=== PATIENT | female | born 1985 | race Caucasian/White ===

== ENCOUNTER 2017-02-15 15:58 | Emergency (ER) | payer OTHER ==
--- NOTE | 2017-02-15 16:23 | EDPHY ---
H & P HPI/ROS: HPI CHIEF COMPLAINT: Abdominal pain HISTORY OF PRESENT ILLNESS: This patient very pleasant 31-year-old female, she is otherwise healthy no significant medical history does not take any daily medications she presents emergency room with abdominal pain since Saturday with associated nausea vomiting and diarrhea. No blood. No fever. She describes her abdominal pain is lower abdomen crampy in nature. She denies being . The pain has been persistent for the past 2 days worse today. She last vomited at 10:00 a.m.. Last had a diarrheal movement earlier this morning. Denies chest pain shortness of breath. Denies blood in her vomit or stool. She does feel nauseous. Is having ongoing 6/10 lower abdominal cramping. Denies urinary symptoms or vaginal bleeding. Denies vaginal discharge. Past Medical History: No medical history Past Surgical History: No surgical history Social History: Lives locally, denies drugs alcohol tobacco. Family History: Noncontributory ROS REVIEW OF SYSTEMS: A comprehensive 10 point review of systems is otherwise negative aside from elements mentioned in the history of present illness. Exam Constitutional appears well nontoxic, triage nursing summary reviewed, vital signs reviewed, awake/alert. Eyes normal conjunctivae and sclera, EOMI, PERRLA. HENT normal inspection, atraumatic, moist mucus membranes, no epistaxis, neck supple/ no meningismus, no raccoon eyes. Respiratory clear to auscultation bilaterally, normal breath sounds, no respiratory distress, no wheezing. Cardiovascular rate normal, regular rhythm, no murmur, no edema, distal pulses normal. Gastrointestinal soft, mild tender palpation lower abdomen, no peritoneal signs, no rebound, no guarding, normal bowel sounds, no distension, no pulsatile mass. Genitourinary no CVA tenderness. Musculoskeletal no midline vertebral tenderness, full range of motion, no calf swelling, no tenderness of extremities, no meningismus, good pulses, neurovascularly intact. Skin pink, warm, & dry, no rash, skin atraumatic. Neurologic awake, alert and oriented x 3, AAOx3, moves all 4 extremities equally, motor intact, sensory intact, CN II-XII intact, normal cerebellar, normal vision, normal speech. Psychiatric normal mood/affect. Heme/Lymph/Immune no lymphadenopathy. Differential diagnosis includes but is not limited to and in no particular order : Bowel obstruction, appendicitis, gallbladder disease, diverticulitis, colitis , enteritis, perforated viscus, gastritis, GERD, esophagitis, urinary tract infection, pyelonephritis, kidney stones Medical Decision Making: Plan for this patient IV established with IV fluid bolus, 0.5 mg IV Dilaudid for pain control, 4 mg IV Zofran for nausea, check basic blood work, CT scan abdomen pelvis with IV contrast rule out colitis, diverticulitis. Re-evaluation: 1816: Patient resting comfortably. She tells me she feels much better after IV fluids Zofran and Dilaudid. Her abdomen remained soft nontender. She has not any vomiting or diarrhea here. Unable to produce a stool specimen at this time. Her CT scan called to me by Dr. Michel CT abdomen pelvis with IV shows no acute inflammatory process. Trace free fluid in the pelvis. No evidence of colitis or diverticulitis. Some swollen lymph nodes present. Unable to visualize the appendix. I discussed the CT scan findings with the patient. She understands they were unable to see her appendix this evening. However she appears well nontoxic she is not having vomiting or worsening diarrhea worsening abdominal pain. She feels comfortable going home. I do recommend she return emergency room she develops worsening abdominal pain fever vomiting given that we cannot see her appendix. Strict return precautions given. Close follow-up. She understands this. Prescription for Zofran provided. Additionally will stent home with a stool specimen collection and if she develops diarrhea stool she can drop off the lab. Source: Patient - Medical/Surgical History Hx Asthma: No Hx Chronic Respiratory Disease: No Hx Diabetes: No Hx Cardiac Disease: No Hx Renal Disease: No Hx Cirrhosis: No Hx Alcoholism: No Hx HIV/AIDS: No Hx Splenectomy or Spleen Trauma: No Other PMH: denies - Social History Smoking Status: Never smoked Constitutional: Initial Vital Signs Temperature (C) 37 C 02/15/17 16:22 Heart Rate 71 02/15/17 16:22 Respiratory Rate 16 02/15/17 16:22 Blood Pressure 114/81 H 02/15/17 16:22 O2 Sat (%) 98 02/15/17 16:22 O2 Delivery Mode Room Air Allergies/Adverse Reactions: amoxicillin Allergy (Verified 02/15/17 16:28) Home Medications: Medication Instructions Recorded Ondansetron HCl [Zofran] 4 mg PO Q4-6PRN PRN #10 tablet 02/15/17 Medical Decision Making - Diagnostics Imaging Results: Imaging Impressions Abdomen CT 02/15/17 16:28 Impression: Trace free fluid in the pelvis, nonspecific. Otherwise, no acute abnormalities in the abdomen or pelvis. Dr. Michel discussed these findings by telephone with Edgardo Sandoval MD on at 17:56. - Data Points Laboratory Results: Laboratory Results 02/15/17 16:45 02/15/17 16:45 02/15/17 02/15/17 02/15/17 18:35 16:45 16:45 WBC RBC Hgb Hct MCV MCH MCHC RDW Plt Count MPV Neut % (Auto) Lymph % (Auto) [place] % (Auto) Eos % (Auto) Baso % (Auto) Nucleat RBC Rel Count Absolute Neuts (auto) Absolute Lymphs (auto) Absolute Monos (auto) Absolute Eos (auto) Absolute Basos (auto) Absolute Nucleated RBC Immature Gran % Immature Gran # PT INR APTT VBG Lactic Acid Sodium 141 mEq/L mEq/L (134-144) Potassium 3.4 mEq/L L mEq/L (3.5-5.2) Chloride 100 mEq/L mEq/L (97-110) Carbon Dioxide 24 mEq/l mEq/l (22-31) Anion Gap 17 mEq/L H mEq/L (8-16) BUN 7 mg/dL mg/dL (7-23) Creatinine 0.6 mg/dL mg/dL (0.6-1.0) Estimated GFR > 60 Glucose 107 mg/dL H mg/dL (70-100) Calcium 9.2 mg/dL mg/dL (8.5-10.4) Total Bilirubin 0.3 mg/dL mg/dL (0.1-1.4) Conjugated Bilirubin 0.1 mg/dL mg/dL (0.0-0.5) Unconjugated Bilirubin 0.2 mg/dL mg/dL (0.0-1.1) AST 17 IU/L IU/L (14-46) ALT 30 IU/L IU/L (9-52) Alkaline Phosphatase 61 IU/L IU/L (38-126) Total Protein 7.4 g/dL g/dL (6.3-8.2) Albumin 4.2 g/dL g/dL (3.5-5.0) Lipase 49 IU/L IU/L (23-300) Beta HCG, Qual NEGATIVE Urine Color YELLOW Urine Appearance CLEAR Urine pH 5.0 (5.0-7.5) Ur Specific [place] <= 1.005 (1.002-1.030) Urine Protein NEGATIVE (NEGATIVE) Urine Ketones NEGATIVE (NEGATIVE) Urine Blood TRACE H (NEGATIVE) Urine Nitrate NEGATIVE (NEGATIVE) Urine Bilirubin NEGATIVE (NEGATIVE) Urine Urobilinogen 0.2 EU EU (0.2-1.0) Ur Leukocyte Esterase NEGATIVE (NEGATIVE) Urine RBC OCCASIONAL /hpf /hpf (0-3) Urine WBC NONE SEEN /hpf /hpf (0-3) Ur Epithelial Cells NONE SEEN /lpf /lpf (NONE-1+) Urine Glucose NEGATIVE (NEGATIVE) 02/15/17 02/15/17 02/15/17 16:45 16:45 16:45 WBC 6.87 10^3/uL 10^3/uL (3.80-9.50) RBC 4.66 10^6/uL 10^6/uL (4.18-5.33) Hgb 14.3 g/dL g/dL (12.6-16.3) Hct 41.4 % % (38.0-47.0) MCV 88.8 fL fL (81.5-99.8) MCH 30.7 pg pg (27.9-34.1) MCHC 34.5 g/dL g/dL (32.4-36.7) RDW 11.6 % % (11.5-15.2) Plt Count 221 10^3/uL 10^3/uL (150-400) MPV 9.4 fL fL (8.7-11.7) Neut % (Auto) 72.5 % % (39.3-74.2) Lymph % (Auto) 14.6 % L % (15.0-45.0) [place] % (Auto) 9.6 % % (4.5-13.0) Eos % (Auto) 2.9 % % (0.6-7.6) Baso % (Auto) 0.3 % % (0.3-1.7) Nucleat RBC Rel Count 0.0 % % (0.0-0.2) Absolute Neuts (auto) 4.98 10^3/uL 10^3/uL (1.70-6.50) Absolute Lymphs (auto) 1.00 10^3/uL 10^3/uL (1.00-3.00) Absolute Monos (auto) 0.66 10^3/uL 10^3/uL (0.30-0.80) Absolute Eos (auto) 0.20 10^3/uL 10^3/uL (0.03-0.40) Absolute Basos (auto) 0.02 10^3/uL 10^3/uL (0.02-0.10) Absolute Nucleated RBC 0.00 10^3/uL 10^3/uL (0-0.01) Immature Gran % 0.1 % % (0.0-1.1) Immature Gran # 0.01 10^3/uL 10^3/uL (0.00-0.10) PT 13.6 SEC SEC (12.0-15.0) INR 1.05 (0.83-1.16) APTT 27.5 SEC SEC (23.0-38.0) VBG Lactic Acid 0.9 mmol/L mmol/L (0.7-2.1) Sodium Potassium Chloride Carbon Dioxide Anion Gap BUN Creatinine Estimated GFR Glucose Calcium Total Bilirubin Conjugated Bilirubin Unconjugated Bilirubin AST ALT Alkaline Phosphatase Total Protein Albumin Lipase Beta HCG, Qual Urine Color Urine Appearance Urine pH Ur Specific [place] Urine Protein Urine Ketones Urine Blood Urine Nitrate Urine Bilirubin Urine Urobilinogen Ur Leukocyte Esterase Urine RBC Urine WBC Ur Epithelial Cells Urine Glucose Medications Given: Discontinued Medications Hydromorphone HCl (Dilaudid) 0.5 mg IVP EDNOW ONE Stop: 02/15/17 16:29 Last Admin: 02/15/17 17:02 Dose: 0.5 mg Sodium Chloride (Ns) 1,000 mls @ 0 mls/hr IV EDNOW ONE; Wide Open PRN Reason: Protocol Stop: 02/15/17 16:29 Last Admin: 02/15/17 16:57 Dose: 1,000 mls Sodium Chloride (Ns) 1,000 mls @ 0 mls/hr IV ONCE ONE PRN Reason: Wide Open Stop: 02/15/17 18:27 Last Admin: 02/15/17 18:25 Dose: 1,000 mls Ondansetron HCl (Zofran) 4 mg IVP EDNOW ONE Stop: 02/15/17 16:29 Last Admin: 02/15/17 16:57 Dose: 4 mg Departure - Departure Disposition: Home, Routine, Self-Care Clinical Impression: Abdominal pain Qualifiers: Abdominal location: lower abdomen, unspecified Qualified Code(s): R10.30 - Lower abdominal pain, unspecified Vomiting Qualifiers: Vomiting type: unspecified Vomiting Intractability: non-intractable Nausea presence: with nausea Qualified Code(s): R11.2 - Nausea with vomiting, unspecified Diarrhea Qualifiers: Diarrhea type: unspecified type Qualified Code(s): R19.7 - Diarrhea, unspecified Condition: Good Instructions: Dehydration (ED), Acute Nausea and Vomiting (ED), Acute Diarrhea (ED), Acute Abdominal Pain (ED) Additional Instructions: 1. Return emergency room if he develops worsening abdominal pain fever vomiting. 2. Stool specimen drop off at the hospital if you have diarrhea. 3. Return if worse. 4. [place] diet over the next 24-48 hours. 5. We were unable to visualize her appendix on the CT scan. If you develop worsening abdominal pain fever vomiting return to the emergency room. Referrals: ANGELICA HERNANDEZ [Primary Care Provider] - As per Instructions Prescriptions: Ondansetron HCl [Zofran] 4 mg PO Q4-6PRN PRN #10 tablet PRN Reason: Nausea/Vomiting, Use 1st
[2017-02-15 16:28] VITALS: RESP 16
[2017-02-15] MEDS ORDERED: NS 1,000 ML IV ONE ×2 (16:28→18:26)
[2017-02-15] MEDS ORDERED: HYDROmorphONE/DILAUDID 1 MG/ML INJ IVP ONE (16:28)
[2017-02-15] MEDS ORDERED: ONDANSETRON 4 MG/2 ML VIAL IVP ONE (16:28)
[2017-02-15] MEDS ORDERED: IOPAMIDOL (ISOVUE-300) 100 ML BTL ONE (16:37)
[2017-02-15 16:51] LABS: % IMMATURE GRANULYOCYTES 0.1 % (0.0-1.1); ABSOLUTE IMMATURE GRANULOCYTES 0.01 10^3/uL (0.00-0.10); ADD DIFF? NO; ADD MORPH? NO; ADD SCAN? NO; ATYPICAL LYMPHOCYTE FLAG 10 (0-99); FRAGMENT RBC FLAG 0 (0-99); HEMATOCRIT 41.4 % (38.0-47.0); HEMOGLOBIN 14.3 g/dL (12.6-16.3); LEFT SHIFT FLG 0 (0-99); LIPEMIA HEMOLYSIS FLAG 90 (0-99); MEAN CELL HEMOGLOBIN 30.7 pg (27.9-34.1); MEAN CELL HEMOGLOBIN CONCENTR. 34.5 g/dL (32.4-36.7); MEAN CELL VOLUME 88.8 fL (81.5-99.8); MEAN PLATELET VOLUME 9.4 fL (8.7-11.7); PLATELET CLUMPS FLAG 0 (0-99); PLATELET COUNT 221 10^3/uL (150-400); RED BLOOD CELL COUNT 4.66 10^6/uL (4.18-5.33); RED CELL DISTRIBUTION WIDTH 11.6 % (11.5-15.2)
[2017-02-15 17:04] LABS: INR 1.05 (0.83-1.16); PROTIME(PATIENT) 13.6 SEC (12.0-15.0)
[2017-02-15 17:05] LABS: APTT 27.5 SEC (23.0-38.0)
[2017-02-15 17:10] LABS: ALANINE AMINOTRANSFERASE 30 IU/L (9-52); ALBUMIN 4.2 g/dL (3.5-5.0); ALKALINE PHOSPHATASE 61 IU/L (38-126); ANION GAP 17 mEq/L (8-16); ASPARTATE AMINOTRANSFERASE 17 IU/L (14-46); BILIRUBIN,TOTAL 0.3 mg/dL (0.1-1.4); BILIRUBIN-CONJUGATED 0.1 mg/dL (0.0-0.5); BILIRUBIN-UNCONJUGATED 0.2 mg/dL (0.0-1.1); CALCIUM 9.2 mg/dL (8.5-10.4); CARBON DIOXIDE 24 mEq/l (22-31); CHLORIDE 100 mEq/L (97-110); CREATININE 0.6 mg/dL (0.6-1.0); GLOMERULAR FILTRATION RATE > 60; GLUCOSE 107 mg/dL (70-100); POTASSIUM 3.4 mEq/L (3.5-5.2); SODIUM 141 mEq/L (134-144); TOTAL PROTEIN 7.4 g/dL (6.3-8.2)
[2017-02-15 18:40] LABS: COLOR YELLOW; LEUKOCYTE ESTERASE,URINE NEGATIVE (NEGATIVE); NITRITE,URINE NEGATIVE (NEGATIVE)
[2017-02-15 18:52] LABS: RBC,URINE OCCASIONAL /hpf (0-3); WBC,URINE NONE SEEN /hpf (0-3)
[2017-02-15 19:33] VITALS: BP 111/69; PULSE 75; TEMP 98.9; O2SAT 98
== END 2017-02-15 19:38 | disposition home or self-care (01) ==
LOC: CED 15:58
DX: R10.30 Lower abdominal pain, unspecified (principal); R11.2 Nausea with vomiting, unspecified; E86.9 Volume depletion, unspecified
CPT/HCPCS: 74177-PO; 80048-PO; 80076-PO; 81003-PO; 81015-PO; 83605-PO; 83690-PO; 84703-PO; 85025-PO; 85610-PO; 85730-PO; 96374; J1170; J2405; Q9967

== ENCOUNTER 2017-12-29 10:19 | Observation (INO) | payer OTHER ==
[2017-12-29 11:31] LABS: PLATELET COUNT 159 10^3/uL (150-400)
[2017-12-29] MEDS ORDERED: oxyCODONE IR 5 MG TAB PO ONE (12:09)
--- NOTE | 2017-12-29 12:34 | PDGENHP ---
History and Physical - Chief Complaint headache - History of Present Illness 32 at 36w6d here with a SIGALA. Pt with SIGALA, frontal and temporal, throbbing, which started yesterday evening. SIGALA has persisted overnight. Min relief from acetominophen, hydration and caffeine. Possible floaters in vision yesterday, none today. No epigastric or RUQ pain. 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 Has been really busy at work the past few weeks and now is done working. HAs are not a normal occurrence for her. Has taken Vicodin for a hand injury and morphine for a GI hospitalization and tolerated both well in the past. course c/b hx of PTD ta 36 wk 2/2 PPROM - was on [place] injections, last one 4 d ago, low lying placenta which resolved at 32wk US, hx of pp anxiety and anxiety this - started on Zoloft at 30 wk, LGA - 88%ile at 30 wk - planning IOL at 39 wk. labs - no genetic screening done. All other PN labs wnl O pos Rub Imm GBS neg History Information - Allergies/Home Medication List Allergies/Adverse Reactions: amoxicillin Allergy (Verified 02/15/17 16:28) I have personally reviewed and updated: family history, medical history, social history, surgical history (anxiety ) - Surgical History Additional surgical history: D&C for TAB, wisdom teeth - Family History Positive for: hypertension (M & F) Additional family history: high chol -M&F. PGM - brain cancer. PGF - leukemia. MGF - prostate ca. MGM - CVA - Social History Smoking Status: Never smoked Alcohol Use: None Drug Use: None Additional social history: , here with her today Review of Systems Review of Systems: ROS: 10pt was reviewed & negative except for what was stated in HPI & below Physical Exam Physical Exam: 36.8 75 100% on RA 16 100/55 range:88-100 / 50-55 FHR 130 reactive, Cat 1 toco - no ctxns Constitutional: no apparent distress, appears nourished Eyes: PERRL, EOMI Ears, Nose, Mouth, Throat: moist mucous membranes, hearing normal, ears appear normal Cardiovascular: regular rate and rhythym Respiratory: no respiratory distress, no rales or rhonchi Gastrointestinal: normoactive bowel sounds, soft, non-tender abdomen (uterine fundus c/w 37 weeks, nontender) Skin: warm, normal color Musculoskeletal: full muscle strength, no muscle tenderness Neurologic: AAOx3 Psychiatric: interacting appropriately Lab Data & Imaging Review 12/29/17 11:10 12/29/17 10:45 WBC 10.00 10^3/uL (3.80-9.50) H 12/29/17 11:10 RBC 3.46 10^6/uL (4.18-5.33) L 12/29/17 11:10 Hgb 10.2 g/dL (12.6-16.3) L 12/29/17 11:10 Hct 30.9 % (38.0-47.0) L 12/29/17 11:10 MCV 89.3 fL (81.5-99.8) 12/29/17 11:10 MCH 29.5 pg (27.9-34.1) 12/29/17 11:10 MCHC 33.0 g/dL (32.4-36.7) 12/29/17 11:10 RDW 12.8 % (11.5-15.2) 12/29/17 11:10 Plt Count 159 10^3/uL (150-400) 12/29/17 11:10 MPV 10.2 fL (8.7-11.7) 12/29/17 11:10 Neut % (Auto) 73.9 % (39.3-74.2) 12/29/17 11:10 Lymph % (Auto) 14.0 % (15.0-45.0) L 12/29/17 11:10 [place] % (Auto) 7.6 % (4.5-13.0) 12/29/17 11:10 Eos % (Auto) 3.7 % (0.6-7.6) 12/29/17 11:10 Baso % (Auto) 0.2 % (0.3-1.7) L 12/29/17 11:10 Nucleat RBC Rel Count 0.0 % (0.0-0.2) 12/29/17 11:10 Absolute Neuts (auto) 7.39 10^3/uL (1.70-6.50) H 12/29/17 11:10 Absolute Lymphs (auto) 1.40 10^3/uL (1.00-3.00) 12/29/17 11:10 Absolute Monos (auto) 0.76 10^3/uL (0.30-0.80) 12/29/17 11:10 Absolute Eos (auto) 0.37 10^3/uL (0.03-0.40) 12/29/17 11:10 Absolute Basos (auto) 0.02 10^3/uL (0.02-0.10) 12/29/17 11:10 Absolute Nucleated RBC 0.00 10^3/uL (0-0.01) 12/29/17 11:10 Immature Gran % 0.6 % (0.0-1.1) 12/29/17 11:10 Immature Gran # 0.06 10^3/uL (0.00-0.10) 12/29/17 11:10 BUN 3 mg/dL (7-23) L 12/29/17 10:45 Creatinine 0.5 mg/dL (0.6-1.0) L 12/29/17 10:45 Estimated GFR > 60 12/29/17 10:45 Uric Acid 4.1 mg/dL (2.5-6.8) 12/29/17 10:45 Total Bilirubin 0.4 mg/dL (0.1-1.4) 12/29/17 10:45 Conjugated Bilirubin 0.2 mg/dL (0.0-0.5) 12/29/17 10:45 Unconjugated Bilirubin 0.2 mg/dL (0.0-1.1) 12/29/17 10:45 AST 19 IU/L (14-46) 12/29/17 10:45 ALT 14 IU/L (9-52) 12/29/17 10:45 Lactate Dehydrogenase 295 IU/L (313-618) L 12/29/17 10:45 Urine Color PALE YELLOW 12/29/17 10:45 Urine Appearance CLEAR 12/29/17 10:45 Urine pH 7.0 (5.0-7.5) 12/29/17 10:45 Ur Specific [place] 1.002 (1.002-1.030) 12/29/17 10:45 Urine Protein NEGATIVE (NEGATIVE) 12/29/17 10:45 Urine Ketones NEGATIVE (NEGATIVE) 12/29/17 10:45 Urine Blood NEGATIVE (NEGATIVE) 12/29/17 10:45 Urine Nitrate NEGATIVE (NEGATIVE) 12/29/17 10:45 Urine Bilirubin NEGATIVE (NEGATIVE) 12/29/17 10:45 Urine Urobilinogen NEGATIVE EU (0.2-1.0) 12/29/17 10:45 Ur Leukocyte Esterase NEGATIVE (NEGATIVE) 12/29/17 10:45 Ur Random Creatinine 13.4 mg/dL 12/29/17 10:45 U Random Total Protein 14 mg/dL (0-11) H 12/29/17 10:45 Urine Glucose NEGATIVE (NEGATIVE) 12/29/17 10:45 Spoke with lab - as neg protein on urinalysis does not correlate with 14mg/dl on quantitative - repeat was the same - but technical service engineer not currently available. P/c = 1.04 - but does not seem consistent with urinalysis. Assessment & Plan Assessment: 32 yo at 36w5d by LMP c/w 8 wk US, with SIGALA, but no other ssx of preeclampsia. Has conflicting urine protein results. Will try po oxycodone and have her eat, to see if we can get some relief of her headache - which is likely tension / musculoskeletal in etiology. If SIGALA begins to resolve, will dc home with preeclampsia precautions, keep appointment in office this week. Ludivina Schmitz MD, [facility], [place]
== END 2017-12-29 13:35 | disposition home or self-care (01) ==
LOC: FLD 10:19
PROVIDERS: ADMIT Hospitalist; ATTEND Hospitalist
DX: O99.89 Other specified diseases and conditions complicating pregnancy, childbirth and the puerperium (principal); R51 Headache; Z3A.36 36 weeks gestation of pregnancy
CPT/HCPCS: G0378 ×2

== ENCOUNTER 2018-01-05 16:28 | Inpatient (IN) | payer OTHER ==
[2018-01-05] MEDS ORDERED: EPSOM SALT 454 GM TP PRN (16:39)
[2018-01-05] MEDS ORDERED: LIDOCAINE 1% 300 MG/30 ML SDV SC PRN (16:39)
[2018-01-05] MEDS ORDERED: TERBUTALINE SULFATE 1 MG/ML VIAL IV PRN (16:39)
[2018-01-05] MEDS ORDERED: OXYTOCIN/RINGERS LACTATE 1,000 ML IV PRN (16:39)
[2018-01-05] MEDS ORDERED: MISOPROSTOL 200 MCG TAB PR PRN (16:39)
[2018-01-05] MEDS ORDERED: OLIVE OIL 118 ML BTL MISC PRN (16:39)
[2018-01-05] MEDS ORDERED: IBUPROFEN 600 MG TAB PO PRN (16:39)
[2018-01-05] MEDS ORDERED: LR 1,000 ML IV PRN (16:39)
[2018-01-05 16:56] LABS: PLATELET COUNT 209 10^3/uL (150-400)
[2018-01-05] MEDS ORDERED: BUPIVACAINE 0.25% 30 ML SDV ONE (16:58)
[2018-01-05] MEDS ORDERED: PHENYLEPHRINE HCL 100 MCG/ML SYR ONE (16:58)
[2018-01-05] MEDS ORDERED: LIDOCAINE 1% 300 MG/30 ML SDV ONE (17:02)
[2018-01-05] MEDS ORDERED: OLIVE OIL 118 ML BTL ONE (17:02)
[2018-01-05] MEDS ORDERED: AMMONIA AROMATIC 1 EACH AMP IH ONE ×2 (17:02→17:04)
[2018-01-05] MEDS ORDERED: TERBUTALINE SULFATE 1 MG/ML VIAL ONE (17:03)
[2018-01-05] MEDS ORDERED: OXYTOCIN 10 UNIT/ML VIAL ONE (17:03)
[2018-01-05] MEDS ORDERED: MISOPROSTOL 200 MCG TAB ONE (17:03)
[2018-01-05] MEDS ORDERED: fentaNYL 2MCG/ML/BUP 0.1% RTU 100 ML BAG EP ONE (17:14)
--- NOTE | 2018-01-05 17:23 | PREANESOB ---
Obstetric Pre-Anesthesia Info - General Info Proposed Procedure: DAKOTA : 3 Para: 1 JOAQUIM: 01/21/18 Gestational Age: 37 week(s) and 5 day(s) - Info Status: Full Term FHR Pattern: Reassuring - Labor Status Indications for Labor Analgesia: Pain Control Labor Epidural: Proposed Anesthesia Allergies/Adverse Reactions: Allergy/AdvReac Type Severity Reaction Status Date / Time amoxicillin Allergy Verified 02/15/17 16:28 Home Medications: Medication Instructions Recorded Ondansetron HCl [Zofran] 4 mg PO Q4-6PRN PRN #10 tablet 02/15/17 Visit Medications: Generic Name Dose Route Start Last Admin Trade Name Freq PRN Reason Stop Dose Admin Lactated Ringer's 1,000 mls @ 0 mls/hr 01/05/18 16:39 Lr IV 01/06/18 16:38 PRN PRN SEE PROTOCOL CONDITIONS Protocol Per Protocol Oxytocin/Lactated Ringer's 1,000 mls @ 125 mls/hr 01/05/18 16:39 Pitocin 20 Units/Lr (Premix) IV PRN PRN Post bleeding Ibuprofen 600 mg 01/05/18 16:39 Motrin PO ONCE PRN post , pain Lidocaine HCl 300 mg 01/05/18 16:39 Lidocaine Hcl 1% SC 07/04/18 16:38 ONCE PRN episiotomy Magnesium Sulfate 454 gm 01/05/18 16:39 Epsom Salt TP 07/04/18 16:38 Q1H PRN perineal discomfort Misoprostol 800 - 1,000 mcg 01/05/18 16:39 Cytotec NV ONCE PRN Vaginal Atony/Bleeding [place] Oil 118 ml 01/05/18 16:39 Sweet Oil MISC 07/04/18 16:38 ONCE PRN perineal massage Terbutaline Sulfate 0.25 mg 01/05/18 16:39 Brethine IV 07/04/18 16:38 ONCE PRN Tachysystole Discontinued Medications Generic Name Dose Route Start Last Admin Trade Name Freq PRN Reason Stop Dose Admin Ammonia (Aromatic Spirit) Confirm 01/05/18 17:02 Ammonia Aromatic Administered 01/05/18 17:03 Dose 1 each IH .STK-MED ONE Ammonia (Aromatic Spirit) Confirm 01/05/18 17:04 Ammonia Aromatic Administered 01/05/18 17:05 Dose 1 each IH .STK-MED ONE Bupivacaine HCl Confirm 01/05/18 16:58 Sensorcaine 0.25% Sdv Administered 01/05/18 16:59 Dose 30 ml .ROUTE .STK-MED ONE Fentanyl/Bupivacaine HCl Confirm 01/05/18 17:14 Fentanyl/Bupivacaine/Ns 2 Mcg/Ml 0.1% (Premix Administered 01/05/18 17:15 Dose 100 ml EP .STK-MED ONE Lidocaine HCl Confirm 01/05/18 17:02 Lidocaine Hcl 1% Administered 01/05/18 17:03 Dose 300 mg .ROUTE .STK-MED ONE Misoprostol Confirm 01/05/18 17:03 Cytotec Administered 01/05/18 17:04 Dose 1,000 mcg .ROUTE .STK-MED ONE [place] Oil Confirm 01/05/18 17:02 Sweet Oil Administered 01/05/18 17:03 Dose 118 ml .ROUTE .STK-MED ONE Oxytocin Confirm 01/05/18 17:03 Pitocin Administered 01/05/18 17:04 Dose 40 unit .ROUTE .STK-MED ONE Phenylephrine HCl Confirm 01/05/18 16:58 Neosynephrine Administered 01/05/18 16:59 Dose 1,000 mcg .ROUTE .STK-MED ONE Terbutaline Sulfate Confirm 01/05/18 17:03 Brethine Administered 01/05/18 17:04 Dose 1 mg .ROUTE .STK-MED ONE - Anesthesia History Response to Local Anesthetics: Not Applicable Anesthesia & Operative History: No Prior Problems Family Anesthesia History: Not Applicable - Vital Signs Height/Weight (Nursing): Height 160.02 cm Weight 63.957 kg - Focused Exam Neck exam: FROM Mallampati Score: Class 1 Mouth exam: normal dental/mouth exam Pulmonary: no respiratory distress Cardiovascular: regular rate and rhythym Labs: 01/05/18 16:40 - Plan Consent Signed and on Chart: Yes Patient/Guardian Understands and Agrees to Plan: Yes Urgent/Emergent Case: Zulema lazo completed preop but documented later for safe timely pt care
[2018-01-05] MEDS ORDERED: METOCLOPRAMIDE 10 MG/2 ML VIAL IVP PRN (17:24)
[2018-01-05] MEDS ORDERED: NALOXONE HCL 0.4 MG/ML INJ IVP PRN (17:24)
[2018-01-05] MEDS ORDERED: PHENYLEPHRINE HCL 100 MCG/ML SYR IVP PRN (17:24)
[2018-01-05] MEDS ORDERED: ONDANSETRON 4 MG/2 ML VIAL IVP PRN (17:24)
--- NOTE | 2018-01-05 17:24 | POSTANESTH ---
Post Anesthetic Evaluation Cardiovascular Status: Normal, Stable Respiratory Status: Normal, Stable Level of Consciousness/Mental Status: Can Participate in Eval Pain Control: Adequate, Prn Tx Ordered Nausea/Vomiting Control: Adequate, Prn Tx Ordered Complications Possibly Related to Anesthesia: None Noted
[2018-01-05] MEDS ORDERED: LR 500 ML IV SCH (17:30)
[2018-01-05] MEDS ORDERED: SIMETHICONE 80 MG TAB CHEW PO PRN (18:36)
[2018-01-05] MEDS ORDERED: HYDROCORTISONE 0.5% CREAM TP PRN (18:36)
--- NOTE | 2018-01-05 18:36 | GHP ---
DATE OF ADMISSION: 01/05/2018 ADMITTING DIAGNOSES: 1. Intrauterine at 37 weeks and 5 days. 2. Active labor. HISTORY OF PRESENT ILLNESS: Patient is a 32-year-old, G3, P1-0-1-1 at 37 weeks and 5 days, with an estimated due date of 01/21/2018 by last menstrual period and consistent with first trimester ultrasound at 8 weeks. The patient presents to Labor and Delivery with complaints of contractions that started about 3:30 yesterday afternoon and have progressively gotten worse, and now over the last hour or so have been every 2-3 minutes apart, and pain is an 8/ 10. The patient states good movement noted. Patient denies any leakage of fluid or vaginal bleeding. Patient does have history of rapid labor. Patient has good care at [facility], and presented in her first trimester. course is complicated by a history of delivery at 36 weeks secondary to PPROM. She was on [place] injections during this , with the last one at 36 weeks and 2 days. She did have a low- lying placenta on anatomy scan, which resolved on a 32-week ultrasound. The patient has a history of anxiety, and anxiety with this , and was started on Zoloft at 30 weeks, and is doing well. On ultrasound, baby is LGA with estimated weight in 88th percentile at 30 weeks, and an induction of labor was planned at 39 weeks. The patient did receive Tdap and flu vaccine. GBS culture is negative. PAST OB HISTORY: In 2006, patient had a TAB with D&C. In 02/2015, she delivered a viable female infant at 36 weeks and 1 day, weighing 6 pounds and 5 ounces secondary to PPROM. 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 Cycles are regular every 28-29 days for 5-7 days. Patient has a history of abnormal Pap smears, with positive high- risk HPV in 2008 and had a colpo. Subsequent pap smears have all been normal. Patient denies exposure to any other STDs. CURRENT MEDICATIONS: Include vitamins, DHA, iron and Zoloft 25 mg. ALLERGIES: Amoxicillin. PAST MEDICAL HISTORY: Remarkable for anxiety. PAST SURGICAL HISTORY: D and C for a therapeutic in 2008. [place] teeth extraction in 2003. FAMILY HISTORY: Mother and father, with hypertension, as well as high cholesterol. Paternal grandmother, brain cancer. Paternal grandfather, leukemia. Maternal grandfather, prostate cancer. Maternal grandmother, CVA. SOCIAL HISTORY: The patient is and lives with her and their daughter, Triny. She denies any alcohol, tobacco, or illicit drug use currently. REVIEW OF SYSTEMS: Ten-point review of systems negative. Pertinent positives noted in HPI. LABS: First trimester H and H, 12.5 and 36.9, platelets 287. Patient is O positive, antibody negative. Rubella immune. Hepatitis B surface antigen negative. HIV negative. CF negative. UA, culture and UDS all negative. Pap smear 07/19 unsatisfactory, neg HR-HPV. Gonorrhea and chlamydia cultures negative. Third trimester H and H 10.2/30.7. One-hour glucola is 109. GBS culture is negative. There was no genetic screening done. PHYSICAL EXAMINATION: VITAL SIGNS: On admission, vital signs are stable. Patient is afebrile at 35.6, heart rate 74, respirations 18, blood pressure 110/ 57. GENERAL: Patient is a well-nourished, well-developed female. Alert and oriented x3. Moderate distress secondary to pain with contractions. NEURO: Grossly intact. SKIN: Warm, dry, without rash. CARDIOVASCULAR: Regular rate and rhythm. LUNGS: Clear to auscultation bilaterally. ABDOMEN: Gravid, soft , nontender. PELVIC: On exam, patient is noted to have a bulgy bag and no cervix felt, head is low at 0 station. EXTREMITIES: Normal to inspection, without calf tenderness or edema. heart tracing is Category 1, reassuring, with baseline of 130 beats per minute. Positive accelerations. No decelerations. Moderate variability. On toco, patient is rubén every 1-2 minutes. ASSESSMENT AND PLAN: Patient is a 32-year-old 3, para 1-0-1-1, at 37 weeks 5 days, who presents in active labor. 1. Admit to Labor and Delivery for expectant management. 2. GBS culture is negative, no prophylactic antibiotics are needed. 3. Patient is requesting an epidural for pain relief. 4. As soon as patient is comfortable, will artificially rupture membranes. 5. Anticipate normal spontaneous vaginal delivery. /[id number]/MODL MTDD
--- NOTE | 2018-01-05 19:06 | OBDEL ---
Info Type: Vaginal Presentation at Delivery: Vertex (ZOYA) L&D Analgesia/Anesthesia Type: Epidural GBS+: No Intrapartum Medications: Discontinued Medications Generic Name Dose Route Start Last Admin Trade Name Letitia PRN Reason Stop Dose Admin Oxytocin/Lactated Ringer's 1,000 mls @ 125 mls/hr 01/05/18 16:39 01/05/18 18: 16 Pitocin 20 Units/Lr (Premix) IV 1,000 mls PRN PRN Administration Post bleeding Misoprostol 800 - 1,000 mcg 01/05/18 16:39 01/05/18 18:20 Cytotec WI 1,000 mcg ONCE PRN Administration Vaginal Atony/Bleeding Indications for Delivery: Spontaneous Labor Vaginal Delivery - Delivery Provider Delivery Physician/CNM: Sonia Perry - Labor and Delivery Onset of Contractions Date: 01/04/18 Onset of Contractions Time: 15:30 Onset of Contractions Type: Spontaneous Rupture of Membranes Date: 01/05/18 Rupture of Membranes Time: 17:45 Rupture of Membranes Type: Artificial Amniotic Fluid Color: Clear (large amount) Dilation Complete Date: 01/05/18 Dilation Complete Time: 17:46 Placenta Delivery Date: 01/05/18 Placenta Delivery Time: 18:14 Total Hours of Labor: 27 Non-surgical Procedures: Amniotomy Laceration: Other (Specify) (perineum intact and no tears) Vaginal Sponge Count Correct: Yes Vaginal Needle Count Correct: Yes Vaginal Sweep Performed: Yes EBL: 350 cc Delivery Events: Other (Specify) (While Pitocin was running, there was heavy bleeding noted and Cytotec 1000 mcg was given WI. Uterus remained firm 1-2 below umbilicus and inspection revealed no tears or lacs.) Delivery Comment: Uncomplicated . Remus Data JOAQUIM: 01/21/18 Gestational Age: 37 week(s) and 5 day(s) Kendall Delivery Date: 01/05/18 Delivery Time: 18:08 Sex of Infant: Female Score (1 Min): 8 Score (5 Min): 9 ICD10 Worksheet Patient Problems: Problems Problem Status Onset Normal labor Acute (spontaneous vaginal delivery) Acute
[2018-01-05] MEDS: ACETAMINOPHEN 325 MG TAB PO SCH (21:06)
[2018-01-06] MEDS: IBUPROFEN 600 MG TAB PO SCH ×4 (01:47→20:32)
[2018-01-06] MEDS: ACETAMINOPHEN 325 MG TAB PO SCH ×4 (01:47→20:32)
[2018-01-06] MEDS: SERTRALINE HCL 25 MG TAB PO SCH (07:51)
[2018-01-06] MEDS ORDERED: FERROUS SULFATE 140 MG TAB.ER PO SCH (09:00)
--- NOTE | 2018-01-06 12:59 | PDPAINCON ---
Pain Management Consultation - Subjective Pain at rest (/10): 0 Pain with activity (/10): 0 Pain is: no pain at all Activity: able to ambulate - Objective Technique: continuous epidural Catheter site: clean, dry, intact Sensory and motor exam: block has resolved, no apparent ill effects Vital signs: stable - Assessment/Plan Assessment/Plan: pain well-controlled, continue current mgmt
--- NOTE | 2018-01-06 17:29 | OBPP ---
Progress Note Assessment/Plan: Assessment: PPD1 s/p . Routine cares H/H looks good, iron supps Rh pos, Rubella immune, Varicella immune JM Subjective/ Course: Doing great, no acute issues. BF going well, pain well controlled. Objective: 01/05/18 16:40 Patient ABO/Rh O POSITIVE 01/05/18 16:40 Temp Pulse Resp BP Pulse Ox 36.3 C 79 16 102/65 96 01/06/18 08:00 01/06/18 08:00 01/06/18 08:00 01/06/18 08:00 01/06/18 08:00 Uterine Position/Fundal Height: At Umbilicus Uterine Tone: Firm
[2018-01-06] MEDS: DOCUSATE SODIUM 100 MG CAP PO PRN (20:31)
[2018-01-07] MEDS: IBUPROFEN 600 MG TAB PO SCH (04:37)
[2018-01-07] MEDS: ACETAMINOPHEN 325 MG TAB PO SCH (04:37)
[2018-01-07] MEDS: SERTRALINE HCL 25 MG TAB PO SCH (08:14)
[2018-01-07] MEDS: DOCUSATE SODIUM 100 MG CAP PO PRN (08:14)
[2018-01-07 08:32] VITALS: BP 109/75
--- NOTE | 2018-01-07 12:24 | OBPP ---
Progress Note Assessment/Plan: Assessment:32 G3Pnow 2 PPD #2 s/p , doing well, anemia - not rechecked after delivery but is asymptomatic, desires homegoing, hx of pp anxiety Plan: DC home. Contin Iron contin Zoloft - currently at 25mg, may increase to 50 mg daily, Continue to follow up with therapist she has been seeing. Ludivina Schmitz MD, [facility] 01/07/18 12:22 Subjective/ Course: Doing great, no acute issues. BF going well, pain well controlled. 01/07/18 12:24 Doing well, ready to go home. BF going well. Ambulating and voiding without difficulty. Mod lochia is decreasing. 01/07/18 12:25 Objective: 01/05/18 16:40 Patient ABO/Rh O POSITIVE 01/05/18 16:40 Temp Pulse Resp BP Pulse Ox 36.2 C 82 16 109/75 96 01/07/18 08:30 01/07/18 08:30 01/07/18 08:30 01/07/18 08:30 01/07/18 08:30 gen - pleasant, NAD CV - RRR chest - CTAB abd - soft, NT, + BS, fundus firm at u-2 ext - BLE - no edema, no calf tenderness
--- NOTE | 2018-01-07 12:34 | OBGCSDC ---
General Delivery Information - General Info : 3 Para: 2 Abortions: 1 Type: Vaginal L&D Analgesia/Anesthesia Type: Epidural Admission Date: 01/05/18 Labs: Patient ABO/Rh O POSITIVE 01/05/18 16:40 Hct 33.0 % (38.0-47.0) L 01/05/18 16:40 - Hospital Course : Doing great, no acute issues. BF going well, pain well controlled. 01/07/18 12:24 Doing well, ready to go home. BF going well. Ambulating and voiding without difficulty. Mod lochia is decreasing. 01/07/18 12:25 Vaginal - Delivery Provider Delivery Physician/CNM: Sonia Perry - Diagnosis Labor: Spontaneous Rupture of Membranes Type: Artificial Amniotic Fluid Color: Clear (large amount) Laceration: Other (Specify) (perineum intact and no tears) Delivery Events: Other (Specify) (While Pitocin was running, there was heavy bleeding noted and Cytotec 1000 mcg was given MI. Uterus remained firm 1-2 below umbilicus and inspection revealed no tears or lacs.) - Procedures Non-surgical Procedures: Amniotomy - Delivery Non-surgical Procedures: Amniotomy EBL: 350 cc Gibson Data JOAQUIM: 01/21/18 Gestational Age: 38 week(s) and 0 day(s) Kendall Delivery Date: 01/05/18 Delivery Time: 18:08 Sex of : Female Weight (gm): 3086 g Score (1 Min): 8 Score (5 Min): 9 Discharge Information - Discharge Information Condition: Good Instruction/Follow Up: See Instruction Sheet (Please follow up with your regular therapist in the next 1-3 weeks. ), Six Weeks (If you are interested in having an IUD placed - make your 6 week appointment a double appointment, or make an additional 8 week appt for IUD insertion )
== END 2018-01-07 12:47 | disposition home or self-care (01) | DRG 807 ==
LOC: FLD 16:28 → FOB 21:04
PROVIDERS: ADMIT Obstetrics & Gynecology; ATTEND Obstetrics & Gynecology
PROC: 10E0XZZ Delivery of Products of Conception, External Approach (ICD-10-PCS; principal; 2018-01-05)
PROC: 10907ZC Drainage of Amniotic Fluid, Therapeutic from Products of Conception, Via Natural or Artificial Opening (ICD-10-PCS; principal; 2018-01-05)
DX: O99.344 Other mental disorders complicating childbirth (principal); F41.9 Anxiety disorder, unspecified; Z37.0 Single live birth; Z3A.37 37 weeks gestation of pregnancy
CPT/HCPCS: J2370; J2590; J3105

== ENCOUNTER → 2018-01-28 | Outpatient (CLI) | payer OTHER | LOC: FLACT 13:49 | PROVIDERS: ATTEND Obstetrics & Gynecology | DX: Z39.1 Encounter for care and examination of lactating mother (principal) | CPT/HCPCS: G0463 ==

== ENCOUNTER 2018-07-19 17:21 | Emergency (ER) | payer OTHER ==
[2018-07-19] MEDS ORDERED: NS 1,000 ML IV ONE ×2 (17:43)
--- NOTE | 2018-07-19 17:46 | EDPHY ---
H & P Stated Complaint: n/v/d started today 1230, abd cramping Time Seen by Provider: 07/19/18 17:27 HPI/ROS: Chief Complaint: Nausea, vomiting, and diarrhea HPI: 33-year-old woman had the onset of nausea vomiting and diarrhea about 12 30 this afternoon. Symptoms began about 30 min after she ate brunch. No one else she ate with has been ill. She has had some abdominal cramping. Patient has been having some hyperventilation is been having some cramping in her hands in her feet. Patient does not know her last menstrual cycle. She is breast- feeding her 6-month-old infant. She also has an IUD in place. No vaginal discharge or bleeding. No urinary urgency or frequency. No fevers or chills. No chest pain or shortness of breath. Abdominal cramping is about a 3/10. No other known ill exposures. No recent travel. Remainder the family members are healthy. ROS: 10 systems were reviewed and were negative except those elements noted in the HPI. PMH: Depression Social History: No smoking, no alcohol, no recreational drug use Family History: non-contributory Physical Exam: Gen: Awake, Alert, No Distress, hyperventilating, carpal pedal spasm HEENT: Nose: no rhinorrhea Eyes: PERRLA, EOMI Mouth: Moist mucosa Neck: Supple, no JVD Chest: nontender, lungs clear to auscultation Heart: S1, S2 normal, no murmur Abd: Soft, non-tender, no guarding Back: no CVA tenderness, no midline tenderness Ext: no edema, non-tender Skin: no rash Neuro: CN II-XII intact, Sensation grossly intact, Strength 5/5 in bilateral upper and lower extremities - Personal History LMP (Females 10-55): IUD In Place - Medical/Surgical History Hx Asthma: No Hx Chronic Respiratory Disease: No Hx Diabetes: No Hx Cardiac Disease: No Hx Renal Disease: No Hx Cirrhosis: No Hx Alcoholism: No Hx HIV/AIDS: No Hx Splenectomy or Spleen Trauma: No Other PMH: pp anxiety - Social History Smoking Status: Never smoked Constitutional: Initial Vital Signs Temperature (C) 36.4 C 07/19/18 17:28 Heart Rate 95 07/19/18 17:28 Respiratory Rate 26 H 07/19/18 17:28 Blood Pressure 96/76 L 07/19/18 17:28 O2 Sat (%) 100 07/19/18 17:28 O2 Delivery Mode Room Air Allergies/Adverse Reactions: amoxicillin Allergy (Verified 07/19/18 17:28) Home Medications: Medication Instructions Recorded Sertraline HCl [Zoloft 25mg (*)] 25 mg PO DAILY tab 01/07/18 Ondansetron Odt [Zofran Odt 4 mg 4 mg PO Q4 PRN #10 tab 07/19/18 (*)] Medical Decision Making ED Course/Re-evaluation: Patient primarily complaining of carpal pedal spasm, nausea vomiting. She is hyperventilating. I have placed a simple face mask with no oxygen. I have also given her inhaled alcohol swabs and of the nose which has improved her nausea. Her abdomen is completely soft and benign. Plan will be to place an IV , IV hydration, check her electrolytes, reassess. Patient is improved after IV hydration and antiemetics. She is tolerating p. O.. Abdomen is soft and benign. No further vomiting. Hyperventilation has resolved. I provided instructions on bland diet in hydration for dehydration, follow up with primary care physician, return for any concerns. Will send her home with some oral Zofran dissolving tablets and a prescription for the same. - Data Points Laboratory Results: 07/19/18 17:59 POC Sodium 141 mEq/L mEq/L (135-145) POC Potassium 4.0 mEq/L mEq/L (3.3-5.0) POC Chloride 105.0 mEq/L mEq/L (97-110) POC Total CO2 21 mEq/L L mEq/L (22-31) POC BUN 18 mg/dL mg/dL (7-23) POC Creatinine 0.9 mg/dL mg/dL (0.6-1.0) POC Glucose 155 mg/dL H mg/dL (70-100) POC Calcium 10.1 mg/dL mg/dL (8.5-10.4) Medications Given: Discontinued Medications Acetaminophen (Tylenol) 1,000 mg PO EDNOW ONE Stop: 07/19/18 19:15 Last Admin: 07/19/18 19:18 Dose: 1,000 mg Sodium Chloride (Ns) 1,000 mls @ 0 mls/hr IV ONCE ONE; Wide Open PRN Reason: Protocol Stop: 07/19/18 17:44 Last Admin: 07/19/18 17:49 Dose: 1,000 mls Sodium Chloride (Ns) 1,000 mls @ 0 mls/hr IV ONCE ONE; Wide Open PRN Reason: Protocol Stop: 07/19/18 17:44 Last Admin: 07/19/18 18:29 Dose: 1,000 mls Lorazepam (Ativan Injection) 1 mg IVP EDNOW ONE Stop: 07/19/18 17:56 Last Admin: 07/19/18 18:00 Dose: 1 mg Ondansetron HCl (Zofran) 4 mg IVP EDNOW ONE Stop: 07/19/18 17:44 Last Admin: 07/19/18 17:49 Dose: 4 mg Ondansetron HCl (Zofran Odt 4 Mg Prepack#2) 1 btl TAKEHOME EDNOW ONE Stop: 07/19/18 18:55 Last Admin: 07/19/18 19:19 Dose: 1 btl Point of Care Test Results: Chemistry 07/19/18 17:59 POC Sodium 141 mEq/L mEq/L (135-145) POC Potassium 4.0 mEq/L mEq/L (3.3-5.0) POC Chloride 105.0 mEq/L mEq/L (97-110) POC Total CO2 21 mEq/L L mEq/L (22-31) POC BUN 18 mg/dL mg/dL (7-23) POC Creatinine 0.9 mg/dL mg/dL (0.6-1.0) POC Glucose 155 mg/dL H mg/dL (70-100) POC Calcium 10.1 mg/dL mg/dL (8.5-10.4) Departure - Departure Disposition: Home, Routine, Self-Care Clinical Impression: Acute gastroenteritis Condition: Good Instructions: Ondansetron (By mouth), Dehydration (ED), Gastroenteritis (ED), Acute Nausea and Vomiting (ED) Additional Instructions: You may take Zofran as needed for nausea and vomiting. Return to the emergency department for increasing abdominal pain, uncontrolled nausea vomiting, fainting, or any other concerns. Referrals: ANGELICA HERNANDEZ [Primary Care Provider] - As per Instructions Prescriptions: Ondansetron Odt [Zofran Odt 4 mg (*)] 4 mg PO Q4 PRN #10 tab PRN Reason: nausea
[2018-07-19] MEDS: ONDANSETRON 4 MG/2 ML VIAL IVP ONE ×2 (17:49→18:00)
[2018-07-19] MEDS ORDERED: LORazepam 2 MG/ML INJ IVP ONE (17:55)
[2018-07-19] MEDS ORDERED: LORazepam 2 MG/ML INJ ONE (17:57)
[2018-07-19] MEDS ORDERED: ONDANSETRON 4MG PREPACK#2 BTL TAKEHOME ONE (18:54)
[2018-07-19 19:11] VITALS: BP 104/67
[2018-07-19] MEDS ORDERED: ACETAMINOPHEN 500 MG TAB PO ONE (19:14)
== END 2018-07-19 19:44 | disposition home or self-care (01) ==
LOC: CED 17:21
DX: K52.9 Noninfective gastroenteritis and colitis, unspecified (principal); E86.0 Dehydration
CPT/HCPCS: 80048-ER; 96361-ER; 96374-ER; 96375-ER; 99284-ER; J2060; J2405